=== PATIENT | male | born 1995 | race Hispanic/Latino ===

== ENCOUNTER 2019-04-04 13:29 | Emergency (ER) | payer OTHER, SELFPAY ==
[2019-04-04 13:30] VITALS: BP 122/72; PULSE 82; RESP 14; TEMP 36.7; O2SAT 98
--- NOTE | 2019-04-04 13:41 | PC.NURSE ---
Interpreting phone being used per pt request
--- NOTE | 2019-04-04 13:45 | DI.RAD.S_ITS ---
PROCEDURE: XR ANKLE LT MIN 3V INDICATIONS: Lateral swelling post fall, unable wt bear. TECHNIQUE: 3 views of the ankle were acquired. COMPARISON: None. FINDINGS: Bones: No fractures or dislocations. Ankle mortise is normally aligned. No suspicious bony lesions. Soft tissues: No tibiotalar joint effusion. Achilles tendon appears normal. IMPRESSION: No acute osseous abnormality of the left ankle. Dictated by: Jasper Ray M.D. on 04/04/2019 at 13:05 Approved by: Jasper Ray M.D. on 04/04/2019 at 13:06
--- NOTE | 2019-04-04 13:48 | ED.LOWEXIN ---
HPI - Extremity Injury (Lower) <STAN Rahman - Last Filed: 04/04/19 20:05> General Chief Complaint: Extremity Injury, Lower Stated Complaint: hurt L foot Time Seen by Provider: 04/04/19 13:32 Source: patient Mode of arrival: ambulatory Limitations: no limitations History of Present Illness HPI Narrative: 23-year old healthy [place]ander-speaking male presents emergency department today after tripping and falling over a pipe at [employer] last night. He complains of a small laceration on the top of his ankle with increased tenderness, he states that it was cleaned by the [employer] nurse last night and this morning. He was able to walk on it then but this morning he woke up and the pain was severe he was unable to walk on his ankle, he noticed more swelling to the lateral part of his ankle. States it is an aching pain 5/10 that is worse with weight-bearing and movement and better with rest. He has taken ibuprofen at 11:00 a.m. this morning and states he does not need anything else for pain. He reports he is up-to-date on his tetanus shot as this is required to work at [employer]. He denies any chest pain, shortness of breath, abdominal pain, numbness, tingling, or changes in bowel patterns. Related Data Home Medications Medication Instructions Recorded Confirmed No Known Home Medications 04/04/19 04/04/19 Allergies Allergy/AdvReac Type Severity Reaction Status Date / Time No Known Drug Allergies Allergy Verified 04/04/19 13:40 Review of Systems <STAN Rahman - Last Filed: 04/04/19 20:05> Review of Systems REVIEW OF SYSTEMS: GENERAL: Denies fever or chills. HENT: No head trauma. EYES: No double vision or vision loss. CARDIOVASCULAR: No chest pain or syncope. RESPIRATORY: No shortness of breath or cough. GASTROINTESTINAL: No nausea, vomiting, diarrhea, or constipation. GENITOURINARY: No flank pain or dysuria. MUSCULOSKELETAL: Complains of left ankle pain, see HPI. INTEGUMENTARY: No rash, lesions, or pruritus. NEURO: No numbness, tingling. PSYCH: No behavior or mood changes. PFSH <STAN Rahman - Last Filed: 04/04/19 20:05> Medical History No significant medical problems (Acute) Social History Smoking Status: Unknown if ever smoked Social History Smoking Status: Unknown if ever smoked Exam <STAN Rahman - Last Filed: 04/04/19 20:05> Initial Vital Signs Initial Vital Signs: Vital Signs Temperature 98.0 F 04/04/19 13:30 Pulse Rate 82 04/04/19 13:30 Respiratory Rate 14 04/04/19 13:30 Blood Pressure 122/72 04/04/19 13:30 Pulse Oximetry 98 04/04/19 13:30 PHYSICAL EXAMINATION: GENERAL: [place]-speaking, history and physical was done through an foreign language interpreter via telephone. Well groomed, alert, and cooperative. Answers questions promptly and appropriately. Vital signs noted. HENT: Normocephalic, atraumatic. EYES: Symmetrical, sclera white, no periorbital swelling. CARDIOVASCULAR: S1 and S2 sounds normal. Regular rate and rhythm, no murmurs, clicks, or bruits. No pedal edema. RESPIRATORY: Normal respiratory rate, trachea midline, airway patent. No stridor, nasal flaring or accessory muscle use. Lungs are clear in all guevara. MUSCULOSKELETAL: Golf-ball size swelling of lateral left ankle, tenderness on palpation to area. Limited inversion of foot due to pain, otherwise normal range of motion. No ecchymosis or erythema. Normal gait and coordination. Equal tone and mass bilaterally. EXTREMITIES: CMS intact. No pedal edema. SKIN: Warm, dry, soft, appropriate color for ethnicity. 6 cm laceration noted to the top of left ankle, Steri-Strips were applied. NEURO: Alert and Oriented X 3. No sensory deficits. PSYCH: Appropriate affect and mood. <Myriam Samuels DO - Last Filed: 04/08/19 18:13> Initial Vital Signs Initial Vital Signs: Vital Signs Temperature 98.0 F 04/04/19 13:30 Pulse Rate 82 04/04/19 13:30 Respiratory Rate 14 04/04/19 13:30 Blood Pressure 122/72 04/04/19 13:30 Pulse Oximetry 98 04/04/19 13:30 Procedures <STAN Rahman - Last Filed: 04/04/19 20:05> Laceration Repair Laceration 1: Site: lower extremity Side (If applicable): left Size (cm): 6 Description: linear Depth: simple, single layer Pre-repair: irrigated extensively Skin layer closed with: steri-strips Course <STAN Rahman - Last Filed: 04/04/19 20:05> Course Narrative: The foreign language interpreter phone was used to conduct history and physical as well as give the patient his results. All questions were answered. Orders Ordered: ED Orders 04/04/19 13:45 XR ankle LT min 3V Stat Vital Signs - 8 hr 04/04/19 13:30 04/04/19 15:02 Temperature 98.0 F Pulse Rate 82 70 Respiratory Rate 14 18 Blood Pressure 122/72 110/59 L Pulse Oximetry 98 <Myriam Samuels DO - Last Filed: 04/08/19 18:13> Orders Ordered: ED Orders 04/04/19 13:45 XR ankle LT min 3V Stat Vital Signs - 8 hr 04/04/19 13:30 04/04/19 15:02 Temperature 98.0 F Pulse Rate 82 70 Respiratory Rate 14 18 Blood Pressure 122/72 110/59 L Pulse Oximetry 98 MDM - Extremity Injury (Lower) <STAN Rahman - Last Filed: 04/04/19 20:05> Medical Records Attestation: I reviewed the patient's medical records. Lab Data Attestation: I reviewed the patient's lab results. Imaging Data R Ankle : Radiologist's impression: [address] [address] XRay Report Signed Patient: Damian Osullivan#: [id number] : 1995Acct:[id number] Age/Sex: 23 / MDate of Service: 04/04/19 Loc: ED Accession Number: [id number] Procedure: XR ankle LT min 3V Ordering Provider: Faye Castellon PROCEDURE: XR ANKLE LT MIN 3V INDICATIONS: Lateral swelling post fall, unable wt bear. TECHNIQUE: 3 views of the ankle were acquired. COMPARISON: None. FINDINGS: Bones: No fractures or dislocations. Ankle mortise is normally aligned. No suspicious bony lesions. Soft tissues: No tibiotalar joint effusion. Achilles tendon appears normal. IMPRESSION: No acute osseous abnormality of the left ankle. Dictated by: Jasper Ray M.D. on 04/04/2019 at 13:05 Approved by: Jasper Ray M.D. on 04/04/2019 at 13:06 [facility] Narrative Medical decision making narrative: Differential includes sprain (most likely due to swelling, pain, mechanism of injury), less likely fracture (x-ray results were negative for fractures). On evaluation of his laceration there is no evidence of infection (no erythema, swelling, or pus), as this laceration occurred over 12 days ago but less than 24, history strips were applied to facilitate healing. Apparently the camp was concerned about necrotizing fasciitis (no evidence infection was present on exam, no systemic symptoms were present, wound tissue appeared healthy and was irrigated extensively). Extensive education was given to patient about infection. Patient understood follow-up instructions and return precautions. Discharge Plan Departure Patient Disposition: Home Clinical Impression: Ankle sprain and strain Discharge Date/Time: 04/04/19 14:50 Interventions: ED Discharge Assessment Last Done: 04/04/19 15:02 Instructions: DI for Ankle Sprain Activity Restrictions/Additional Instructions: Thank you for entrusting me with your care today. As discussed, the x-ray showed no fracture in your ankle. He may use the Hans wrap to decrease the swelling during the day, please remove this at night. He may use crutches to help with walking as needed but please try to put weight on your ankle as tolerated. We placed Steri-Strips on your wound, these are not like sutures, there is a small gap that will allow the wound to continue to drain. Do not pull these off they will fall off on their own, he can change the bandage daily. It is always recommended after extensive cleaning to close your wound within 12 hours if it is a deep laceration unless it is an animal bite. However, since it is past 12 hours, Steri-Strips were used. Return to the walk-in clinic or the emergency department if he develops signs of infection such as redness, pus, fevers, chills, chest pain, or shortness of breath. Prescriptions: No Action No Known Home Medications RF: 0 <Myriam Samuels, - Last Filed: 04/08/19 18:13> Cosign ED Attending Cosignature Attestation: I was immediately available in the department for consultation. This documentation has been reviewed and I agree with assessment and plan. Supervised by Myriam Samuels,
[2019-04-04 15:02] VITALS: BP 110/59; PULSE 70; RESP 18
== END 2019-04-04 14:50 | disposition home or self-care (01) ==
PROVIDERS: Emergency Provider Nurse Practitioner
DX: S93.402A Sprain of unspecified ligament of left ankle, initial encounter (principal); S91.012A Laceration without foreign body, left ankle, initial encounter; W01.0XXA Fall on same level from slipping, tripping and stumbling without subsequent striking against object, initial encounter; Y92.833 Campsite as the place of occurrence of the external cause; Y99.9 Unspecified external cause status
CPT/HCPCS: 73610; 99282; 99283